=== PATIENT | female | born 1960 | race Asian ===

== ENCOUNTER 2025-07-12 19:26 | Emergency (ER) | payer OTHER ==
[~2025-07-12] VITALS: Ht 160 cm; Wt 61.0 kg
[2025-07-12 19:31] VITALS: BP 103/41; PULSE 67; RESP 16; TEMP 36.8; O2SAT 100
[2025-07-12 20:53] LABS: BASOPHILS % 0.3 % (0.0-2.0); EOSINOPHILS % 7.1 % (0.0-5.0); HEMATOCRIT. 37.9 % (36.0-48.0); HEMOGLOBIN. 12.5 g/dL (12.0-16.0); LYMPHOCYTES % 21.8 % (20.0-50.0); MEAN PLATELET VOLUME 7.7 fl (7.4-10.4); MONOCYTES % 5.4 % (2.0-8.0); NEUTROPHILS % 65.4 % (40.0-76.0); PLATELET 299 x1000/uL (130-400); RED BLOOD CELL COUNT 4.27 mill/uL (4.2-5.4); RED CELL DISTRIBUTION WIDTH 14.1 % (11.6-14.6)
[2025-07-12 21:06] LABS: CREATININE 1.1 mg/dL (0.6-1.0); TROPONIN I HIGH SENSITIVITY 6 ng/L (3.0-34)
[2025-07-12 21:07] LABS: UREA NITROGEN BLOOD 13 mg/dL (9-23)
[2025-07-12 21:08] LABS: ASPARTATE AMINOTRANSFERASE 42 IU/L (<34); BILIRUBIN DIRECT < 0.1 mg/dL (<=3.0)
[2025-07-12 21:09] LABS: BILIRUBIN TOTAL 0.3 mg/dL (0.1-1.0); PROTEIN TOTAL 7.3 g/dL (6.0-8.3)
== END 2025-07-12 21:43 | disposition home or self-care (01) ==
LOC: ER 19:26
DX: R55 Syncope and collapse (principal); I10 Essential (primary) hypertension
CPT/HCPCS: 36415; 71045; 80048; 80076; 83735; 83880; 84484; 85025; 93005; 99285